=== PATIENT | female | born 1965 | race Caucasian/White ===

== ENCOUNTER 2017-03-20 18:17 | Emergency (ER) | payer BC ==
[~2017-03-20] VITALS: Ht 162.6 cm; Wt 99.8 kg
[2017-03-20 18:41] VITALS: BP_SYST 168
[2017-03-20] MEDS ORDERED: HYDROmorphone 1 MG INJ. 1 MG/ML AMPUL IVP ONE (21:30)
[2017-03-20] MEDS ORDERED: ONDANSETRON HCL 4 MG/2 ML VIAL IVP ONE (21:30)
[2017-03-20 22:20] VITALS: BP_SYST 163
== END 2017-03-20 22:20 | disposition home or self-care (01) ==
LOC: SED 18:17
DX: S63.263A Dislocation of metacarpophalangeal joint of left middle finger, initial encounter (principal); S63.265A Dislocation of metacarpophalangeal joint of left ring finger, initial encounter; J45.909 Unspecified asthma, uncomplicated; M25.512 Pain in left shoulder; M25.561 Pain in right knee; Z88.0 Allergy status to penicillin; W01.0XXA Fall on same level from slipping, tripping and stumbling without subsequent striking against object, initial encounter; Y93.89 Activity, other specified; Y92.89 Other specified places as the place of occurrence of the external cause; Y99.8 Other external cause status
CPT/HCPCS: 26700; 73030; 73120; 73130; 73200; 96374; 96375; 99284; J1170; J2405